=== PATIENT | female | born 1945 | race Caucasian/White ===

== ENCOUNTER 2016-10-25 01:14 | Emergency (ER) | payer MEDICARE ==
[~2016-10-25] VITALS: Ht 175.3 cm; Wt 81.0 kg
[2016-10-25 01:24] VITALS: BP 150/83; PULSE 80; RESP 18; TEMP 97.8; O2SAT 97
[2016-10-25] MEDS ORDERED: VYTO10TA8 PO (01:37)
[2016-10-25 01:45] VITALS: BP 150/83; PULSE 80; RESP 18; TEMP 97.8; O2SAT 97
[2016-10-25] MEDS ORDERED: AUGM875T PO (01:55)
[2016-10-25] MEDS ORDERED: ULTR50TA5 PO (01:55)
--- NOTE | 2016-10-25 01:56 | PD ---
HPI . Bite Chief Complaint: Bite or Sting Time Seen by Provider: 01:45 Travel History International Travel<30 days: No Contact w/Intl Traveler<30days: No Traveled to known affect area: No History of Present Illness HPI Patient presents with a cat bite to her right hand. She was bitten about 10 AM. She states that she has amoxicillin on hand because of a knee replacement. She states that she took 1000 mg of amoxicillin around lunchtime and then again around midnight. She has developed gradually worsening swelling and erythema on the dorsal aspect of the right hand. She does not recall the date of her last tetanus shot. This is a friend's cat that she is babysitting. The cat is not acting in any way unusual. [id number]: Right hand DURATION: Less than 1 day TIMING: Gradually worsening CONTEXT: Bitten by a cat PFSH Past Medical History Cardiovascular Problems: Yes ?: Not Social History Tobacco Use: No Allergies-Medications (Allergen,Severity, Reaction): Coded Allergies: Codeine (Verified Allergy, Severe, vomiting, 10/25/16) Reported Meds & Prescriptions Reported Meds & Active Scripts Active Reported Vytorin (Ezetimibe-Simvastatin) 10-20 Mg Tab 1 Tab PO HS Review of Systems Except as stated in HPI: all other systems reviewed are Neg General / Constitutional: No: Fever, Chills Skin: Positive Change in Pigmentation (and swelling) Physical Exam Narrative GENERAL: Awake and alert and in no acute distress. SKIN: Warm and dry. Redness and swelling on the dorsal aspect of the right hand. CARDIOVASCULAR: Regular rate and rhythm. RESPIRATORY: No accessory muscle use. MUSCULOSKELETAL: No obvious deformities. No edema. No pain with movement of the tendons of the right hand. NEUROLOGICAL: Awake and alert. No obvious cranial nerve deficits. Motor grossly within normal limits. Normal speech. PSYCHIATRIC: Appropriate mood and affect; insight and judgment normal. Data Data Last Documented VS Vital Signs Date Time Temp Pulse Resp B/P Pulse Ox O2 Delivery O2 Flow Rate FiO2 10/25/16 01:48 80 18 10/25/16 01:45 97.8 150/83 97 Orders Tetanus/Diphtheria Tox Adult (Tetanus/Di (10/25/16 02:00) Amoxicil-Clavulanate (Augmentin) (10/25/16 02:00) MDM Medical Decision Making Medical Screen Exam Complete: Yes Emergency Medical Condition: Yes Differential Diagnosis Differential diagnosis includes cellulitis, abscess, tenosynovitis, retained foreign body Narrative Course Patient presents for treatment of a cat bite to the right hand. Physical exam is consistent with cellulitis without tenosynovitis. She will be treated with Augmentin. Tetanus will be updated. Diagnosis Primary Impression: Cat bite of hand Qualified Code: S61.451A - Cat bite of hand, right, initial encounter Patient Instructions: Cellulitis (DC), General Instructions Med/Other Pt SpecificInfo: Prescription(s) given Scripts Tramadol (Ultram)50 Mg Tab50 Mg PO Q4H PRN (PAIN) #12 TAB Ref 0 Prov:Alyson Casillas MD 10/25/16 Amoxicillin-Clavulanate (Augmentin)875-125 mg Jth290 Mg PO BID 10 Days Ref 0 not for use in CrCl <30 ml/min. Prov:Alyson Casillas MD 10/25/16 Disposition: 01 DISCHARGE HOME Condition: Stable Alyson Casillas MD Oct 25, 2016 01:56
[2016-10-25] MEDS ORDERED: AMOXICILLIN/CLAVULANATE K 875 MG TAB PO ONE (02:00)
[2016-10-25] MEDS ORDERED: TETANUS/DIPHTHERIA TOXOID ADULT 0.5 ML VIAL IM ONE (02:00)
[2016-10-25] MEDS ORDERED: traMADol HCL 50 MG TAB PO ONE (02:00)
== END 2016-10-25 02:23 | disposition home or self-care (01) ==
LOC: PHED 01:14
DX: S61.451A Open bite of right hand, initial encounter (principal); W55.01XA Bitten by cat, initial encounter; Z23 Encounter for immunization
CPT/HCPCS: 90471; 90714